=== PATIENT | female | born 1970 | race African-American/Black ===

== ENCOUNTER 2016-10-28 08:34 | Emergency (ER) | payer MEDICAID ==
[~2016-10-28] VITALS: Ht 154.9 cm; Wt 73.0 kg
[~2016-10-28 08:34] MED LIST: ATEN-176; FERR142T6 PO; HYDR-1348; HYDR-3927 PO; NEXIUM
[2016-10-28] MEDS ORDERED: HYDROCODONE/ACETAMINOPHEN 5/325MG TABLET PO ONE (10:15)
[2016-10-28 11:26] VITALS: BP 153/92
== END 2016-10-28 11:34 | disposition home or self-care (01) ==
LOC: ER 08:51
DX: M25.562 Pain in left knee (principal); I10 Essential (primary) hypertension; K21.9 Gastro-esophageal reflux disease without esophagitis; F17.200 Nicotine dependence, unspecified, uncomplicated
CPT/HCPCS: 73560; 99284; L1830

== ENCOUNTER 2019-01-25 02:41 | Emergency (ER) | payer MEDICAID ==
[~2019-01-25] VITALS: Ht 154.9 cm; Wt 69.0 kg
[2019-01-25 04:11] LABS: BASOPHILS % 0.9 % (0.0-2.0); EOSINOPHILS % 0.1 % (0.0-5.0); HEMATOCRIT. 35.5 % (36.0-48.0); HEMOGLOBIN. 11.7 g/dL (12.0-16.0); LYMPHOCYTES % 19.3 % (20.0-50.0); MEAN CORPUSCULAR HEMOGLOBIN 29.7 pg (28.0-32.0); MEAN PLATELET VOLUME 8.3 fl (7.4-10.4); MONOCYTES % 9.9 % (2.0-8.0); NEUTROPHILS % 69.8 % (40.0-76.0); PLATELET 337 x1000/uL (130-400); RED BLOOD CELL COUNT 3.95 mill/uL (4.2-5.4); RED CELL DISTRIBUTION WIDTH 15.1 % (11.6-14.6)
[2019-01-25 04:24] LABS: CHLORIDE 113 mEq/L (98-107)
[2019-01-25 04:27] LABS: ETHANOL BLOOD < 10 mg/dL
[2019-01-25 04:33] LABS: T4 FREE 1.03 ng/dL (0.76-1.46)
[2019-01-25 04:50] LABS: *AMPHETAMINES SCREEN URINE NEGATIVE (NEGATIVE)
[2019-01-25 04:51] LABS: *BARBITURATES SCREEN URINE NEGATIVE (NEGATIVE); *BENZODIAZEPINES SCREEN URINE NEGATIVE (NEGATIVE); *COCAINE SCREEN URINE NEGATIVE (NEGATIVE); PHENCYCLIDINE URINE SCREEN NEGATIVE (NEGATIVE)
[2019-01-25 04:52] LABS: CANNABINOID URINE SCREEN NEGATIVE (NEGATIVE)
[2019-01-25 04:57] LABS: METHADONE URINE SCREEN PRESUMTIVE POSITIVE (NEGATIVE); OPIATES URINE SCREEN PRESUMTIVE POSITIVE (NEGATIVE)
[2019-01-25] MEDS ORDERED: ONDANSETRON 4MG ODT PO ONE (05:00)
[2019-01-25 05:48] VITALS: BP 133/74
== END 2019-01-25 06:18 | disposition home or self-care (01) ==
LOC: ER 02:41
DX: R00.2 Palpitations (principal); D72.829 Elevated white blood cell count, unspecified; F32.9 Major depressive disorder, single episode, unspecified; E11.9 Type 2 diabetes mellitus without complications; F17.200 Nicotine dependence, unspecified, uncomplicated; K21.9 Gastro-esophageal reflux disease without esophagitis; I10 Essential (primary) hypertension; Z90.49 Acquired absence of other specified parts of digestive tract
CPT/HCPCS: 36415; 71045; 80053; 80305; 80320; 81025; 83880; 84439; 84443; 84484; 85025; 93005; 99284; Q0162; G0480

== ENCOUNTER 2019-02-05 18:38 | Emergency (ER) | payer MEDICAID ==
[~2019-02-05] VITALS: Ht 154.9 cm; Wt 68.0 kg
[2019-02-05] MEDS ORDERED: ONDANSETRON HCL 4MG/2ML INJ IV ONE (22:30)
[2019-02-05 22:41] LABS: BASOPHILS % 0.8 % (0.0-2.0); CHLORIDE 109 mEq/L (98-107); EOSINOPHILS % 0.2 % (0.0-5.0); HEMATOCRIT. 36.6 % (36.0-48.0); HEMOGLOBIN. 12.3 g/dL (12.0-16.0); LYMPHOCYTES % 26.8 % (20.0-50.0); MEAN CORPUSCULAR HEMOGLOBIN 30.4 pg (28.0-32.0); MEAN CORPUSCULAR VOLUME 90.6 fL (81.0-99.0); MEAN PLATELET VOLUME 9.3 fl (7.4-10.4); MONOCYTES % 7.4 % (2.0-8.0); NEUTROPHILS % 64.8 % (40.0-76.0); PLATELET 230 x1000/uL (130-400); RED BLOOD CELL COUNT 4.04 mill/uL (4.2-5.4); RED CELL DISTRIBUTION WIDTH 15.4 % (11.6-14.6)
[2019-02-05 23:22] VITALS: BP 124/74
== END 2019-02-06 | disposition home or self-care (01) ==
LOC: ER 18:38
DX: E87.70 Fluid overload, unspecified (principal); K04.7 Periapical abscess without sinus; F12.10 Cannabis abuse, uncomplicated; F32.9 Major depressive disorder, single episode, unspecified; E11.9 Type 2 diabetes mellitus without complications; K21.9 Gastro-esophageal reflux disease without esophagitis; I10 Essential (primary) hypertension; Z90.49 Acquired absence of other specified parts of digestive tract; Z98.890 Other specified postprocedural states; Z79.899 Other long term (current) drug therapy
CPT/HCPCS: 36415; 71045; 80053; 82962; 83880; 84484; 85025; 93005; 96374; 99284; J2405; Z7610

== ENCOUNTER 2019-03-06 15:52 | Emergency (ER) | payer MEDICAID, OTHER ==
[~2019-03-06] VITALS: Ht 154.9 cm; Wt 62.0 kg
[2019-03-06] MEDS ORDERED: ONDANSETRON HCL 4MG/2ML INJ IV STA (23:31)
[2019-03-06] MEDS ORDERED: SODIUM CHLORIDE 0.9% 1,000 ML IV ONE (23:31)
[2019-03-07 00:34] LABS: BASOPHILS % 0.8 % (0.0-2.0); EOSINOPHILS % 0.4 % (0.0-5.0); HEMATOCRIT. 39.4 % (36.0-48.0); HEMOGLOBIN. 13.4 g/dL (12.0-16.0); LYMPHOCYTES % 28.3 % (20.0-50.0); MEAN CORPUSCULAR HEMOGLOBIN 29.8 pg (28.0-32.0); MEAN CORPUSCULAR VOLUME 87.5 fL (81.0-99.0); MEAN PLATELET VOLUME 7.9 fl (7.4-10.4); MONOCYTES % 7.1 % (2.0-8.0); NEUTROPHILS % 63.4 % (40.0-76.0); PLATELET 340 x1000/uL (130-400); RED CELL DISTRIBUTION WIDTH 14.5 % (11.6-14.6)
[2019-03-07 00:39] LABS: CHLORIDE 114 mEq/L (98-107)
[2019-03-07 01:01] VITALS: BP 142/78
[2019-03-07 02:48] LABS: CLARITY URINE CLOUDY (CLEAR); COLOR URINE DARK YELLOW (YELLOW); KETONES URINE TRACE (NEGATIVE); LEUKOCYTE ESTERASE URINE NEGATIVE (NEGATIVE); NITRITE URINE NEGATIVE (NEGATIVE); OCCULT BLOOD URINE NEGATIVE (NEGATIVE); PROTEIN URINE 1+ (NEGATIVE); SPECIFIC GRAVITY URINE 1.026 (1.005-1.030); UROBILINOGEN URINE 0.2 E.U./dL (0.2-1.0)
== END 2019-03-07 03:52 | disposition home or self-care (01) ==
LOC: ER 15:52
DX: R11.2 Nausea with vomiting, unspecified (principal); R19.7 Diarrhea, unspecified; F32.9 Major depressive disorder, single episode, unspecified; K21.9 Gastro-esophageal reflux disease without esophagitis; E11.9 Type 2 diabetes mellitus without complications; F17.200 Nicotine dependence, unspecified, uncomplicated; I10 Essential (primary) hypertension; Z90.49 Acquired absence of other specified parts of digestive tract
CPT/HCPCS: 36415; 71045; 80053; 81003; 83605; 83690; 85025; 87804; 96361; 96374; 99284; J2405; J7030; Z7610

== ENCOUNTER 2020-05-25 15:59 | Emergency (ER) | payer MEDICAID ==
[~2020-05-25] VITALS: Ht 154.9 cm; Wt 77.0 kg
[~2020-05-25 15:59] MED LIST changes: +METF-414 PO
[2020-05-25] MEDS ORDERED: SODIUM CHLORIDE 0.9% 1,000 ML IV ONE (16:30)
[2020-05-25] MEDS ORDERED: ONDANSETRON HCL 4MG/2ML INJ IV ONE (16:30)
[2020-05-25 18:29] LABS: BASOPHILS % 0.3 % (0.0-2.0); CLARITY URINE CLEAR (CLEAR); COLOR URINE YELLOW (YELLOW); HEMATOCRIT. 38.3 % (36.0-48.0); KETONES URINE TRACE (NEGATIVE); LEUKOCYTE ESTERASE URINE NEGATIVE (NEGATIVE); LYMPHOCYTES % 18.7 % (20.0-50.0); MEAN CORPUSCULAR HEMOGLOBIN 31.2 pg (28.0-32.0); MEAN PLATELET VOLUME 9.7 fl (7.4-10.4); MONOCYTES % 5.9 % (2.0-8.0); NEUTROPHILS % 75.1 % (40.0-76.0); NITRITE URINE NEGATIVE (NEGATIVE); OCCULT BLOOD URINE NEGATIVE (NEGATIVE); PH URINE 5.5 (4.5-8.0); PLATELET 311 x1000/uL (130-400); PROTEIN URINE 1+ (NEGATIVE); RED BLOOD CELL COUNT 4.16 mill/uL (4.2-5.4); RED CELL DISTRIBUTION WIDTH 13.1 % (11.6-14.6); SPECIFIC GRAVITY URINE 1.031 (1.005-1.030); UROBILINOGEN URINE 0.2 E.U./dL (0.2-1.0)
[2020-05-25 18:35] LABS: CHLORIDE 106 mEq/L (98-107)
[2020-05-25] MEDS ORDERED: MORPHINE SULFATE 4 MG/ML CPJ (NOT FOR IM USE) IV ONE (19:15)
[2020-05-25] MEDS ORDERED: ONDA4TAB5 PO (21:22)
[2020-05-25 21:50] VITALS: BP 119/73
[2020-05-29] MEDS ORDERED: METF-874 PO (18:21)
== END 2020-05-25 21:50 | disposition home or self-care (01) ==
LOC: ER 15:59
DX: N17.9 Acute kidney failure, unspecified (principal); E86.0 Dehydration; D72.829 Elevated white blood cell count, unspecified; D35.00 Benign neoplasm of unspecified adrenal gland; E11.9 Type 2 diabetes mellitus without complications; K21.9 Gastro-esophageal reflux disease without esophagitis; I10 Essential (primary) hypertension; Z98.890 Other specified postprocedural states; Z90.49 Acquired absence of other specified parts of digestive tract; Z79.899 Other long term (current) drug therapy
CPT/HCPCS: 36415; 71045; 74176; 80048; 80076; 81003; 81025; 82962; 84484; 85025; 93005; 96361; 96374; 96375; 99285; J2270; J2405; J7030

== ENCOUNTER 2020-06-18 17:39 | Emergency (ER) | payer MEDICAID ==
[~2020-06-18] VITALS: Ht 167.6 cm; Wt 80.0 kg
[~2020-06-18 17:39] MED LIST changes: -FERR142T6 PO; -HYDR-1348; -METF-414 PO; +METF-874 PO; -NEXIUM
[2020-06-18] MEDS ORDERED: MORPHINE SULFATE 4 MG/ML CPJ (NOT FOR IM USE) IV ONE (19:00)
[2020-06-18 19:39] LABS: BASOPHILS % 0.8 % (0.0-2.0); EOSINOPHILS % 0.5 % (0.0-5.0); HEMATOCRIT. 32.9 % (36.0-48.0); HEMOGLOBIN. 11.3 g/dL (12.0-16.0); LYMPHOCYTES % 20.5 % (20.0-50.0); MEAN CORPUSCULAR HEMOGLOBIN 31.5 pg (28.0-32.0); MEAN CORPUSCULAR VOLUME 91.9 fL (81.0-99.0); MEAN PLATELET VOLUME 9.2 fl (7.4-10.4); MONOCYTES % 6.9 % (2.0-8.0); NEUTROPHILS % 71.3 % (40.0-76.0); PLATELET 354 x1000/uL (130-400); RED BLOOD CELL COUNT 3.58 mill/uL (4.2-5.4); RED CELL DISTRIBUTION WIDTH 14.9 % (11.6-14.6)
[2020-06-18 19:49] LABS: PROTHROMBIN TIME 10.4 sec (9.6-11.0)
[2020-06-18 20:44] LABS: CHLORIDE 112 mEq/L (98-107)
[2020-06-18 20:59] LABS: CLARITY URINE CLEAR (CLEAR); COLOR URINE YELLOW (YELLOW); KETONES URINE NEGATIVE (NEGATIVE); LEUKOCYTE ESTERASE URINE NEGATIVE (NEGATIVE); NITRITE URINE NEGATIVE (NEGATIVE); OCCULT BLOOD URINE NEGATIVE (NEGATIVE); PH URINE 5.5 (4.5-8.0); PROTEIN URINE NEGATIVE (NEGATIVE); SPECIFIC GRAVITY URINE 1.017 (1.005-1.030); UROBILINOGEN URINE 0.2 E.U./dL (0.2-1.0)
[2020-06-18] MEDS ORDERED: ONDANSETRON HCL 4MG/2ML INJ IV ONE (21:15)
[2020-06-18 23:47] VITALS: BP 119/76
== END 2020-06-19 00:40 | disposition home or self-care (01) ==
LOC: ER 17:39
DX: R10.9 Unspecified abdominal pain (principal); E11.9 Type 2 diabetes mellitus without complications; K21.9 Gastro-esophageal reflux disease without esophagitis; I10 Essential (primary) hypertension; Z90.49 Acquired absence of other specified parts of digestive tract
CPT/HCPCS: 36415; 74176; 80053; 81003; 83690; 83880; 85025; 85610; 93005; 96374; 96375; 99285; J2270; J2405

== ENCOUNTER 2020-07-25 07:04 | Inpatient (IN) | payer MEDICAID, OTHER ==
[~2020-07-25] VITALS: Ht 154.9 cm; Wt 80.3 kg
[~2020-07-25 07:04] MED LIST changes: +AMLO5TAB88 PO; -ATEN-176; +GLIP5TAB12 PO; -HYDR-3927 PO; +METF-414 MT; -METF-874 PO; +PANT40TA51 MT
[2020-07-25] MEDS ORDERED: ONDANSETRON HCL 4MG/2ML INJ IV STA (07:55)
[2020-07-25] MEDS ORDERED: FAMOTIDINE 20MG/2ML VIAL IV STA (07:55)
[2020-07-25] MEDS ORDERED: MORPHINE SULFATE 4 MG/ML CPJ (NOT FOR IM USE) IV STA (07:55)
[2020-07-25] MEDS ORDERED: SODIUM CHLORIDE 0.9% 1,000 ML IV ONE (08:00)
[2020-07-25 08:17] LABS: BASOPHILS % 0.8 % (0.0-2.0); HEMATOCRIT. 43.5 % (36.0-48.0); HEMOGLOBIN. 14.6 g/dL (12.0-16.0); LYMPHOCYTES % 18.9 % (20.0-50.0); MEAN CORPUSCULAR HEMOGLOBIN 31.4 pg (28.0-32.0); MEAN CORPUSCULAR VOLUME 93.7 fL (81.0-99.0); MEAN PLATELET VOLUME 8.9 fl (7.4-10.4); NEUTROPHILS % 73.3 % (40.0-76.0); PLATELET 368 x1000/uL (130-400); RED BLOOD CELL COUNT 4.64 mill/uL (4.2-5.4); RED CELL DISTRIBUTION WIDTH 15.2 % (11.6-14.6)
[2020-07-25 08:24] LABS: CHLORIDE 111 mEq/L (98-107)
[2020-07-25 08:27] LABS: PROTHROMBIN TIME 10.5 sec (9.6-11.0)
[2020-07-25 08:30] LABS: ETHANOL BLOOD < 10 mg/dL
[2020-07-25 08:41] LABS: HCG SCREEN NEGATIVE
[2020-07-25] MEDS ORDERED: PIPERACILLIN/TAZ 3.375G PREMIX 50 ML IV ONE (09:00)
[2020-07-25] MEDS ORDERED: SODIUM CHLORIDE 0.9% 1000ML BAG (SEPSIS BOLUS) IV ONE (09:00)
[2020-07-25 09:45] LABS: *AMPHETAMINES SCREEN URINE NEGATIVE (NEGATIVE); *BARBITURATES SCREEN URINE NEGATIVE (NEGATIVE); *BENZODIAZEPINES SCREEN URINE NEGATIVE (NEGATIVE); CANNABINOID URINE SCREEN NEGATIVE (NEGATIVE)
[2020-07-25 09:46] LABS: *COCAINE SCREEN URINE NEGATIVE (NEGATIVE); METHADONE URINE SCREEN NEGATIVE (NEGATIVE); OPIATES URINE SCREEN PRESUMTIVE POSITIVE (NEGATIVE); PHENCYCLIDINE URINE SCREEN NEGATIVE (NEGATIVE)
[2020-07-25 09:50] LABS: CLARITY URINE CLEAR (CLEAR); COLOR URINE DARK YELLOW (YELLOW); KETONES URINE NEGATIVE (NEGATIVE); LEUKOCYTE ESTERASE URINE NEGATIVE (NEGATIVE); NITRITE URINE NEGATIVE (NEGATIVE); OCCULT BLOOD URINE TRACE (NEGATIVE); PH URINE 5.5 (4.5-8.0); PROTEIN URINE 2+ (NEGATIVE); SPECIFIC GRAVITY URINE 1.029 (1.005-1.030); UROBILINOGEN URINE 0.2 E.U./dL (0.2-1.0)
[2020-07-25] MEDS: MORPHINE SULFATE 2 MG/ML CPJ (NOT FOR IM USE) IV PRN ×2 (14:35→20:06)
[2020-07-25 23:52] VITALS: BP 157/79
[2020-07-26] VITALS: BP 157/79
[2020-07-26] MEDS ORDERED: DEXTROSE 50% WATER 50ML SYRINGE IV PRN (00:30)
[2020-07-26] MEDS ORDERED: CLONIDINE 0.1MG TABLET PO PRN (00:30)
[2020-07-26] MEDS ORDERED: ONDANSETRON HCL 4MG/2ML INJ IV PRN (00:30)
[2020-07-26] MEDS ORDERED: SODIUM CHLORIDE 0.9% 1,000 ML IV SCH (00:30)
[2020-07-26] MEDS ORDERED: BLOOD SUGAR DIAGNOSTIC STRIP TEST SCH (07:20)
[2020-07-26] MEDS ORDERED: INSULIN LISPRO 100 UNITS/ML SUBCUT SCH (07:50)
[2020-07-26] MEDS ORDERED: PANTOPRAZOLE SODIUM 40 MG/VIAL IV SCH (09:00)
== END 2020-07-26 01:15 | disposition left against medical advice (07) | DRG 251 ==
LOC: ER 07:04 → EDBEDREQ 10:08 → EDBEDREQTM 10:08 → EDBEDREQSVC 10:08 → ENRESERV 21:25 → 6EST 23:25
PROVIDERS: ADMIT Internal Medicine; ATTEND Internal Medicine
DX: R10.9 Unspecified abdominal pain (principal); E11.9 Type 2 diabetes mellitus without complications; R11.2 Nausea with vomiting, unspecified; I10 Essential (primary) hypertension; K21.9 Gastro-esophageal reflux disease without esophagitis; F17.210 Nicotine dependence, cigarettes, uncomplicated; Z79.899 Other long term (current) drug therapy; Z90.49 Acquired absence of other specified parts of digestive tract; Z82.49 Family history of ischemic heart disease and other diseases of the circulatory system
CPT/HCPCS: 36415; 71045; 74176; 80053; 80305; 80320; 81003; 82962; 83605; 84703; 85025; 93005; 99291; J2270; J2405; J2543; J3490; J7030; G0480

== ENCOUNTER 2020-09-07 21:14 | Emergency (ER) | payer MEDICAID ==
[~2020-09-07] VITALS: Ht 154.9 cm; Wt 77.0 kg
[2020-09-07] MEDS ORDERED: KETOROLAC 30MG/ML VIAL IV STA (22:10)
[2020-09-07] MEDS ORDERED: METOCLOPRAMIDE HCL 10MG/2ML VIAL IV STA (22:10)
[2020-09-07 22:25] LABS: BASOPHILS % 0.7 % (0.0-2.0); EOSINOPHILS % 0.2 % (0.0-5.0); HEMATOCRIT. 34.6 % (36.0-48.0); LYMPHOCYTES % 16.6 % (20.0-50.0); MEAN CORPUSCULAR HEMOGLOBIN 31.2 pg (28.0-32.0); MEAN CORPUSCULAR VOLUME 90.3 fL (81.0-99.0); MEAN PLATELET VOLUME 8.4 fl (7.4-10.4); MONOCYTES % 4.7 % (2.0-8.0); NEUTROPHILS % 77.8 % (40.0-76.0); PLATELET 327 x1000/uL (130-400); RED BLOOD CELL COUNT 3.83 mill/uL (4.2-5.4); RED CELL DISTRIBUTION WIDTH 13.2 % (11.6-14.6)
[2020-09-07 22:31] LABS: CHLORIDE 109 mEq/L (98-107)
[2020-09-08] MEDS ORDERED: KETOROLAC 30MG/ML VIAL IV ONE (03:15)
[2020-09-08] MEDS ORDERED: METO-293 MT (03:23)
[2020-09-08 03:55] VITALS: BP 119/65
== END 2020-09-08 03:58 | disposition home or self-care (01) ==
LOC: ER 21:14
DX: R10.13 Epigastric pain (principal); E11.43 Type 2 diabetes mellitus with diabetic autonomic (poly)neuropathy; K31.84 Gastroparesis; K21.9 Gastro-esophageal reflux disease without esophagitis; I10 Essential (primary) hypertension; F17.290 Nicotine dependence, other tobacco product, uncomplicated; Z98.890 Other specified postprocedural states; Z90.49 Acquired absence of other specified parts of digestive tract; Z79.899 Other long term (current) drug therapy
CPT/HCPCS: 36415; 80053; 83605; 83690; 85025; 93005; 96374; 96375; 96376; 99285; J1885; J2765

== ENCOUNTER 2020-10-09 08:09 | Emergency (ER) | payer MEDICAID ==
[~2020-10-09] VITALS: Ht 160 cm; Wt 80.0 kg
[~2020-10-09 08:09] MED LIST changes: +METO-293 MT
[2020-10-09] MEDS ORDERED: KETOROLAC 60MG/2ML VIAL IM ONE (09:15)
[2020-10-09] MEDS ORDERED: IBUP-2029 MT (10:03)
[2020-10-09 10:15] VITALS: BP 147/80
== END 2020-10-09 10:17 | disposition home or self-care (01) ==
LOC: ER 08:09
DX: S86.812A Strain of other muscle(s) and tendon(s) at lower leg level, left leg, initial encounter (principal); M79.662 Pain in left lower leg; E11.9 Type 2 diabetes mellitus without complications; I10 Essential (primary) hypertension; W10.8XXA Fall (on) (from) other stairs and steps, initial encounter; Y93.01 Activity, walking, marching and hiking; Y92.9 Unspecified place or not applicable
CPT/HCPCS: 73502; 96372; 99283; J1885

== ENCOUNTER 2020-10-18 14:37 | Emergency (ER) | payer MEDICAID ==
[~2020-10-18] VITALS: Ht 154.9 cm; Wt 77.0 kg
[~2020-10-18 14:37] MED LIST changes: +IBUP-2029 MT
[2020-10-18] MEDS ORDERED: TRAMADOL 50MG TABLET PO ONE (17:30)
[2020-10-18] MEDS ORDERED: IBUPROFEN 600MG TABLET PO ONE (17:30)
[2020-10-18] MEDS ORDERED: TRAM-529 MT (17:42)
[2020-10-18 17:53] VITALS: BP 162/86
== END 2020-10-18 18:06 | disposition home or self-care (01) ==
LOC: ER 14:37
DX: S39.011A Strain of muscle, fascia and tendon of abdomen, initial encounter (principal); E11.9 Type 2 diabetes mellitus without complications; I10 Essential (primary) hypertension; W01.0XXA Fall on same level from slipping, tripping and stumbling without subsequent striking against object, initial encounter; Y93.9 Activity, unspecified; Y92.9 Unspecified place or not applicable; Z98.890 Other specified postprocedural states
CPT/HCPCS: 99283

== ENCOUNTER 2020-10-25 21:45 | Emergency (ER) | payer MEDICAID ==
[~2020-10-25] VITALS: Ht 154.9 cm; Wt 78.0 kg
[~2020-10-25 21:45] MED LIST changes: +TRAM-529 MT
[2020-10-26 01:27] LABS: BASOPHILS % 0.8 % (0.0-2.0); EOSINOPHILS % 0.1 % (0.0-5.0); HEMATOCRIT. 37.8 % (36.0-48.0); HEMOGLOBIN. 12.9 g/dL (12.0-16.0); LYMPHOCYTES % 16.9 % (20.0-50.0); MEAN CORPUSCULAR HEMOGLOBIN 30.5 pg (28.0-32.0); MEAN CORPUSCULAR VOLUME 89.3 fL (81.0-99.0); MEAN PLATELET VOLUME 9.3 fl (7.4-10.4); MONOCYTES % 6.5 % (2.0-8.0); NEUTROPHILS % 75.7 % (40.0-76.0); PLATELET 265 x1000/uL (130-400); RED BLOOD CELL COUNT 4.23 mill/uL (4.2-5.4); RED CELL DISTRIBUTION WIDTH 13.4 % (11.6-14.6)
[2020-10-26 01:29] LABS: CLARITY URINE CLEAR (CLEAR); COLOR URINE YELLOW (YELLOW); KETONES URINE NEGATIVE (NEGATIVE); LEUKOCYTE ESTERASE URINE NEGATIVE (NEGATIVE); NITRITE URINE NEGATIVE (NEGATIVE); OCCULT BLOOD URINE NEGATIVE (NEGATIVE); PROTEIN URINE NEGATIVE (NEGATIVE); SPECIFIC GRAVITY URINE 1.035 (1.005-1.030); UROBILINOGEN URINE 0.2 E.U./dL (0.2-1.0)
[2020-10-26 01:29] LABS: BG BASE EXCESS -2.1 mmol/L (-2.0-2.0); BG CARBOXYHEMOGLOBIN 5.1 % (0.5-1.5); BG DEOXYHEMOGLOBIN 2.9 % (0.0-5.0); BG HCO3 ACT 20.7 mmol/L (22.0-26.0); BG METHEMOGLOBIN 0.1 % (0.0-1.5); BG OXYGEN SATURATION 96.9 % (92.0-98.5); BG OXYHEMOGLOBIN 91.9 % (94.0-97.0); BG PCO2 29.8 mmHg (35.0-45.0); BG PH 7.459 (7.350-7.450); BG PO2 84.2 mmHg (75.0-100.0); BG SAMPLE SITE RIGHT RADIAL; BG TOTAL HEMOGLOBIN 13.3 g/dL (12.0-18.0); BG VENT MODE ROOM AIR
[2020-10-26 01:31] LABS: CHLORIDE 99 mEq/L (98-107)
[2020-10-26 01:39] LABS: BETA HYDROXYBUTYRATE 0.1 mMol/L (0.0-0.3)
[2020-10-26] MEDS ORDERED: KETOROLAC 30MG/ML VIAL IV STA (01:59)
[2020-10-26] MEDS ORDERED: INSULIN REGULAR (HUMULIN R) 300UNITS/3ML VIAL SUBCUT ONE (02:00)
[2020-10-26] MEDS ORDERED: SODIUM CHLORIDE 0.9% 1,000 ML IV ONE ×2 (02:00)
[2020-10-26 04:24] VITALS: BP 145/95
== END 2020-10-26 03:18 | disposition short-term general hospital (02) ==
LOC: ER 21:45
DX: E11.65 Type 2 diabetes mellitus with hyperglycemia (principal); M79.18 Myalgia, other site; I10 Essential (primary) hypertension; K21.9 Gastro-esophageal reflux disease without esophagitis; Z98.890 Other specified postprocedural states
CPT/HCPCS: 71045; 93005; 96361; 96372; 96374; 99285

== ENCOUNTER 2021-01-24 03:11 | Emergency (ER) | payer MEDICAID, OTHER ==
[~2021-01-24] VITALS: Ht 154.9 cm; Wt 75.0 kg
[2021-01-24] MEDS ORDERED: ONDANSETRON HCL 4MG/2ML INJ IV STA (07:31)
[2021-01-24] MEDS ORDERED: VISCOUS LIDOCAINE 2% 15 ML UDC PO STA (07:31)
[2021-01-24] MEDS ORDERED: MAGNESIUM/ALUMINUM HYDROXIDE/SIMETHICONE 30ML UDC PO STA (07:31)
[2021-01-24] MEDS ORDERED: SODIUM CHLORIDE 0.9% 1,000 ML IV ONE (07:45)
[2021-01-24 08:50] VITALS: BP 140/84
== END 2021-01-24 10:29 | disposition left against medical advice (07) ==
LOC: ER 03:11
DX: R10.9 Unspecified abdominal pain (principal); E11.9 Type 2 diabetes mellitus without complications; K21.9 Gastro-esophageal reflux disease without esophagitis; E78.00 Pure hypercholesterolemia, unspecified; I10 Essential (primary) hypertension; Z90.49 Acquired absence of other specified parts of digestive tract; Z98.890 Other specified postprocedural states
CPT/HCPCS: 82962; 93005; 96361; 96374; 99283; J2405; J7030

== ENCOUNTER 2021-01-29 14:00 | Emergency (ER) | payer OTHER ==
[~2021-01-29] VITALS: Ht 154.9 cm; Wt 73.0 kg
[2021-01-29] MEDS ORDERED: SODIUM CHLORIDE 0.9% 1,000 ML IV ONE (14:15)
[2021-01-29] MEDS ORDERED: ONDANSETRON HCL 4MG/2ML INJ IV ONE (14:30)
[2021-01-29] MEDS ORDERED: ACETAMINOPHEN 325MG TABLET PO ONE (14:30)
[2021-01-29 14:33] LABS: BASOPHILS % 0.9 % (0.0-2.0); EOSINOPHILS % 0.2 % (0.0-5.0); HEMATOCRIT. 45.7 % (36.0-48.0); HEMOGLOBIN. 15.1 g/dL (12.0-16.0); LYMPHOCYTES % 19.5 % (20.0-50.0); MEAN CORPUSCULAR HEMOGLOBIN 29.8 pg (28.0-32.0); MEAN CORPUSCULAR VOLUME 90.3 fL (81.0-99.0); MEAN PLATELET VOLUME 9.6 fl (7.4-10.4); MONOCYTES % 6.7 % (2.0-8.0); NEUTROPHILS % 72.7 % (40.0-76.0); PLATELET 347 x1000/uL (130-400); RED BLOOD CELL COUNT 5.06 mill/uL (4.2-5.4); RED CELL DISTRIBUTION WIDTH 13.3 % (11.6-14.6)
[2021-01-29 15:39] LABS: CHLORIDE 104 mEq/L (98-107)
[2021-01-29] MEDS ORDERED: KETOROLAC 15MG/ML VIAL IV ONE (16:15)
[2021-01-29 16:27] LABS: BG BASE EXCESS -5.5 mmol/L (-2.0-2.0); BG CARBOXYHEMOGLOBIN 2.4 % (0.5-1.5); BG DEOXYHEMOGLOBIN 3.1 % (0.0-5.0); BG HCO3 ACT 16.9 mmol/L (22.0-26.0); BG METHEMOGLOBIN 0.2 % (0.0-1.5); BG OXYGEN SATURATION 96.8 % (92.0-98.5); BG OXYHEMOGLOBIN 94.3 % (94.0-97.0); BG PCO2 25.8 mmHg (35.0-45.0); BG PH 7.434 (7.350-7.450); BG PO2 87.2 mmHg (75.0-100.0); BG SAMPLE SITE RIGHT RADIAL; BG VENT MODE ROOM AIR
[2021-01-29 17:14] LABS: CLARITY URINE CLEAR (CLEAR); COLOR URINE YELLOW (YELLOW); KETONES URINE NEGATIVE (NEGATIVE); LEUKOCYTE ESTERASE URINE NEGATIVE (NEGATIVE); NITRITE URINE NEGATIVE (NEGATIVE); OCCULT BLOOD URINE NEGATIVE (NEGATIVE); PH URINE 5.5 (4.5-8.0); PROTEIN URINE 1+ (NEGATIVE); SPECIFIC GRAVITY URINE 1.038 (1.005-1.030); UROBILINOGEN URINE 0.2 E.U./dL (0.2-1.0)
[2021-01-29] MEDS ORDERED: METRONIDAZOLE 500 MG PREMIX 100 ML IV ONE (18:15)
[2021-01-29] MEDS ORDERED: CEFTRIAXONE 1 G PREMIX 50 ML IV ONE (18:15)
[2021-01-29 18:58] VITALS: BP 137/87
== END 2021-01-29 19:35 | disposition short-term general hospital (02) ==
LOC: ER 14:00
DX: R10.9 Unspecified abdominal pain (principal); F11.23 Opioid dependence with withdrawal; R00.0 Tachycardia, unspecified; I10 Essential (primary) hypertension; E11.9 Type 2 diabetes mellitus without complications; K21.9 Gastro-esophageal reflux disease without esophagitis; E78.00 Pure hypercholesterolemia, unspecified; Z90.49 Acquired absence of other specified parts of digestive tract
CPT/HCPCS: 36415; 36600; 74176; 80053; 81003; 82375; 82805; 83605; 83690; 84484; 85025; 93005; 96365; 96368; 96375; 99285; J0696; J1885; J2405; J3490; J7030; J7040

== ENCOUNTER 2021-03-03 10:45 | Emergency (ER) | payer MEDICAID, OTHER ==
[~2021-03-03] VITALS: Ht 154.9 cm; Wt 73.0 kg
[2021-03-03 11:43] VITALS: BP 140/87
[2021-03-03 14:29] LABS: CLARITY URINE CLEAR (CLEAR); COLOR URINE YELLOW (YELLOW); KETONES URINE NEGATIVE (NEGATIVE); LEUKOCYTE ESTERASE URINE NEGATIVE (NEGATIVE); NITRITE URINE NEGATIVE (NEGATIVE); OCCULT BLOOD URINE NEGATIVE (NEGATIVE); PH URINE 5.5 (4.5-8.0); PROTEIN URINE 2+ (NEGATIVE); SPECIFIC GRAVITY URINE 1.038 (1.005-1.030)
== END 2021-03-03 12:19 | disposition left against medical advice (07) ==
LOC: ER 10:45
DX: J02.9 Acute pharyngitis, unspecified (principal); M79.10 Myalgia, unspecified site
CPT/HCPCS: 81003; 87070; 87430; 99283

== ENCOUNTER 2021-03-13 09:54 | Emergency (ER) | payer OTHER ==
[~2021-03-13] VITALS: Ht 154.9 cm; Wt 70.7 kg
[2021-03-13] MEDS ORDERED: HYDROCODONE/ACETAMINOPHEN 5/325MG TABLET PO ONE (11:15)
[2021-03-13] MEDS ORDERED: IBUPROFEN 400MG TABLET PO ONE (11:15)
[2021-03-13 12:20] VITALS: BP 155/88
== END 2021-03-13 12:47 | disposition left against medical advice (07) ==
LOC: ER 10:24
DX: R60.0 Localized edema (principal); R00.0 Tachycardia, unspecified; I10 Essential (primary) hypertension; E11.9 Type 2 diabetes mellitus without complications; Z90.49 Acquired absence of other specified parts of digestive tract; Z98.890 Other specified postprocedural states
CPT/HCPCS: 82962; 93005; 93970; 99284

== ENCOUNTER 2021-03-18 06:52 | Emergency (ER) | payer OTHER ==
[~2021-03-18] VITALS: Ht 154.9 cm; Wt 73.0 kg
[2021-03-18 12:09] LABS: BASOPHILS % 0.3 % (0.0-2.0); EOSINOPHILS % 0.1 % (0.0-5.0); HEMATOCRIT. 38.6 % (36.0-48.0); HEMOGLOBIN. 12.7 g/dL (12.0-16.0); LYMPHOCYTES % 7.7 % (20.0-50.0); MEAN CORPUSCULAR HEMOGLOBIN 28.5 pg (28.0-32.0); MEAN CORPUSCULAR VOLUME 86.7 fL (81.0-99.0); MEAN PLATELET VOLUME 8.4 fl (7.4-10.4); MONOCYTES % 7.6 % (2.0-8.0); NEUTROPHILS % 84.3 % (40.0-76.0); PLATELET 599 x1000/uL (130-400); RED BLOOD CELL COUNT 4.46 mill/uL (4.2-5.4); RED CELL DISTRIBUTION WIDTH 13.3 % (11.6-14.6)
[2021-03-18 12:13] LABS: CHLORIDE 105 mEq/L (98-107)
[2021-03-18] MEDS ORDERED: SODIUM CHLORIDE 0.9% 1000ML BAG (SEPSIS BOLUS) IV ONE (14:00)
[2021-03-18] MEDS ORDERED: CEFTRIAXONE 1 G PREMIX 50 ML IV ONE (14:15)
[2021-03-18] MEDS ORDERED: AZITHROMYCIN 500 MG in DEXT 5% WATER 250 ML IV STA (15:06)
[2021-03-18] MEDS ORDERED: AZITHROMYCIN 500MG/250ML 250 ML IV NR (15:15)
[2021-03-18 17:19] VITALS: BP 153/78
== END 2021-03-18 18:14 | disposition short-term general hospital (02) ==
LOC: ER 06:52 → EDBEDREQTM 14:15 → ER 18:14 → CANBEDREQ 18:21
DX: J18.9 Pneumonia, unspecified organism (principal); E11.9 Type 2 diabetes mellitus without complications; K21.9 Gastro-esophageal reflux disease without esophagitis; E78.00 Pure hypercholesterolemia, unspecified; I10 Essential (primary) hypertension; Z90.49 Acquired absence of other specified parts of digestive tract; Z20.822 Contact with and (suspected) exposure to COVID-19; Z98.890 Other specified postprocedural states
CPT/HCPCS: 36415; 71045; 80053; 82962; 83605; 83880; 84484; 85025; 87040; 87426; 93005; 96361; 96365; 96367; 99285; J0456; J0696; J7030; J7060

== ENCOUNTER 2021-09-20 12:03 | Emergency (ER) | payer MEDICAID, OTHER ==
[~2021-09-20] VITALS: Ht 154.9 cm; Wt 69.0 kg
[2021-09-20] MEDS ORDERED: ONDANSETRON HCL 4MG/2ML INJ IV STA (18:24)
[2021-09-20] MEDS ORDERED: MORPHINE SULFATE 4 MG/ML CPJ (NOT FOR IM USE) IV STA (18:24)
[2021-09-20 18:40] LABS: HEMATOCRIT. 39.2 % (36.0-48.0); HEMOGLOBIN. 13.1 g/dL (12.0-16.0); MEAN CORPUSCULAR HEMOGLOBIN 29.9 pg (28.0-32.0); MEAN CORPUSCULAR VOLUME 89.5 fL (81.0-99.0); MEAN PLATELET VOLUME 8.8 fl (7.4-10.4); PLATELET 327 x1000/uL (130-400); RED BLOOD CELL COUNT 4.38 mill/uL (4.2-5.4); RED CELL DISTRIBUTION WIDTH 14.2 % (11.6-14.6)
[2021-09-20 18:47] LABS: CHLORIDE 108 mEq/L (98-107)
[2021-09-20] MEDS ORDERED: MORPHINE SULFATE 4 MG/ML CPJ (NOT FOR IM USE) IV ONE (19:45)
[2021-09-20] MEDS ORDERED: HYDR-4001 MT (20:14)
[2021-09-20 20:40] VITALS: BP 134/84
[2021-09-20 21:54] LABS: PLATELET ESTIMATE NORMAL
== END 2021-09-20 20:41 | disposition home or self-care (01) ==
LOC: ER 12:03
DX: U07.1 COVID-19 (principal); M54.50 Low back pain, unspecified; E11.65 Type 2 diabetes mellitus with hyperglycemia; K21.9 Gastro-esophageal reflux disease without esophagitis; E78.00 Pure hypercholesterolemia, unspecified; I10 Essential (primary) hypertension; Z90.49 Acquired absence of other specified parts of digestive tract; Z87.19 Personal history of other diseases of the digestive system; Z79.899 Other long term (current) drug therapy
CPT/HCPCS: 36415; 71045; 80053; 83690; 83880; 84484; 85025; 87426; 96374; 96375; 99284; C9803; J2270; J2405

== ENCOUNTER 2021-11-28 20:06 | Emergency (ER) | payer MEDICAID, OTHER ==
[~2021-11-28] VITALS: Ht 154.9 cm; Wt 84.0 kg
[2021-11-28 20:17] VITALS: BP 153/79
== END 2021-11-29 04:17 | disposition home or self-care (01) ==
LOC: ER 20:06
DX: R60.9 Edema, unspecified (principal); I10 Essential (primary) hypertension; Z68.35 Body mass index [BMI] 35.0-35.9, adult; E11.9 Type 2 diabetes mellitus without complications; Z98.890 Other specified postprocedural states; F17.290 Nicotine dependence, other tobacco product, uncomplicated
CPT/HCPCS: 71045; 93970; 99284; 99406

== ENCOUNTER 2022-01-14 17:56 | Emergency (ER) | payer MEDICAID ==
[~2022-01-14] VITALS: Ht 167.6 cm; Wt 75.0 kg
[2022-01-14 18:04] VITALS: BP 143/83
[2022-01-14] MEDS ORDERED: CYCLOBENZAPRINE 10MG TABLET PO ONE (23:00)
[2022-01-14] MEDS ORDERED: HYDROCODONE/ACETAMINOPHEN 5/325MG TABLET PO ONE (23:00)
[2022-01-15] MEDS ORDERED: CYCL5TAB MT (01:43)
[2022-01-15] MEDS ORDERED: HYDR-4001 MT (01:43)
== END 2022-01-15 02:10 | disposition home or self-care (01) ==
LOC: ER 17:56
DX: M54.50 Low back pain, unspecified (principal); I10 Essential (primary) hypertension; E11.9 Type 2 diabetes mellitus without complications; Z79.899 Other long term (current) drug therapy; W01.0XXA Fall on same level from slipping, tripping and stumbling without subsequent striking against object, initial encounter; Y93.89 Activity, other specified; Y92.89 Other specified places as the place of occurrence of the external cause; Y99.8 Other external cause status; Z98.890 Other specified postprocedural states
CPT/HCPCS: 72131; 82962; 99284

== ENCOUNTER 2022-02-03 03:59 | Emergency (ER) | payer MEDICAID ==
[~2022-02-03] VITALS: Ht 154.9 cm; Wt 72.7 kg
[~2022-02-03 03:59] MED LIST changes: +CYCL5TAB MT; -IBUP-2029 MT; +LEVO-65 MT; -METO-293 MT; -TRAM-529 MT
[2022-02-03 04:02] VITALS: BP 137/92
== END 2022-02-03 05:31 | disposition left against medical advice (07) ==
LOC: ER 04:09
DX: Z53.21 Procedure and treatment not carried out due to patient leaving prior to being seen by health care provider (principal); E11.9 Type 2 diabetes mellitus without complications; K21.9 Gastro-esophageal reflux disease without esophagitis; I10 Essential (primary) hypertension; Z87.01 Personal history of pneumonia (recurrent); Z98.890 Other specified postprocedural states
CPT/HCPCS: 93005

== ENCOUNTER 2022-02-06 16:59 | Emergency (ER) | payer MEDICAID ==
[~2022-02-06] VITALS: Ht 167.6 cm; Wt 78.0 kg
[2022-02-06 17:08] VITALS: BP 144/71
[2022-02-07] MEDS ORDERED: FURO20TA4 PO (04:57)
[2022-02-07] MEDS ORDERED: POTA-79 MT (04:57)
[2022-02-07] MEDS ORDERED: FUROSEMIDE 40MG TABLET PO ONE (05:00)
[2022-02-07] MEDS ORDERED: HYDROCODONE/ACETAMINOPHEN 5/325MG TABLET PO ONE (05:00)
[2022-02-07] MEDS ORDERED: ACET-2708 MT (06:17)
[2022-02-07] MEDS ORDERED: CEPH500C2 MT (06:22)
== END 2022-02-07 06:27 | disposition home or self-care (01) ==
LOC: ER 16:59
DX: R60.0 Localized edema (principal); I10 Essential (primary) hypertension; E11.9 Type 2 diabetes mellitus without complications; Z79.899 Other long term (current) drug therapy; Z98.890 Other specified postprocedural states
CPT/HCPCS: 93005; 99283

== ENCOUNTER 2022-03-06 23:34 | Emergency (ER) | payer MEDICAID ==
[~2022-03-06] VITALS: Ht 154.9 cm; Wt 70.0 kg
[~2022-03-06 23:34] MED LIST changes: +ACET-2708 MT; +CEPH500C2 MT; +FURO20TA4 PO; +POTA-79 MT
[2022-03-07] MEDS ORDERED: SODIUM CHLORIDE 0.9% 1,000 ML IV ONE (00:15)
[2022-03-07 01:36] LABS: BASOPHILS % 1.2 % (0.0-2.0); EOSINOPHILS % 0.5 % (0.0-5.0); HEMATOCRIT. 35.6 % (36.0-48.0); MEAN CORPUSCULAR HEMOGLOBIN 29.3 pg (28.0-32.0); MEAN CORPUSCULAR VOLUME 86.8 fL (81.0-99.0); MEAN PLATELET VOLUME 8.5 fl (7.4-10.4); MONOCYTES % 5.2 % (2.0-8.0); NEUTROPHILS % 78.1 % (40.0-76.0); PLATELET 300 x1000/uL (130-400); RED CELL DISTRIBUTION WIDTH 14.4 % (11.6-14.6)
[2022-03-07 01:44] LABS: CHLORIDE 106 mEq/L (98-107)
[2022-03-07 01:53] LABS: BETA HYDROXYBUTYRATE 0.1 mMol/L (0.0-0.3); ETHANOL BLOOD < 10 mg/dL
[2022-03-07] MEDS ORDERED: VANCOMYCIN 1G PREMIX 200 ML IV SCH (04:15)
[2022-03-07] MEDS ORDERED: PIPERACILLIN/TAZOBACTAM 3.375GM/50ML PREMIX IV NR (04:15)
[2022-03-07 05:18] LABS: CLARITY URINE CLEAR (CLEAR); COLOR URINE YELLOW (YELLOW); KETONES URINE NEGATIVE (NEGATIVE); LEUKOCYTE ESTERASE URINE NEGATIVE (NEGATIVE); NITRITE URINE NEGATIVE (NEGATIVE); OCCULT BLOOD URINE NEGATIVE (NEGATIVE); PROTEIN URINE 1+ (NEGATIVE); SPECIFIC GRAVITY URINE 1.032 (1.005-1.030); UROBILINOGEN URINE 0.2 E.U./dL (0.2-1.0)
[2022-03-07] MEDS ORDERED: OXYCODONE HCL/ACETAMINOPHEN 5/325MG TABLET PO ONE (05:30)
[2022-03-07 05:41] LABS: *AMPHETAMINES SCREEN URINE NEGATIVE (NEGATIVE); *BARBITURATES SCREEN URINE NEGATIVE (NEGATIVE); *BENZODIAZEPINES SCREEN URINE NEGATIVE (NEGATIVE); *COCAINE SCREEN URINE NEGATIVE (NEGATIVE); CANNABINOID URINE SCREEN NEGATIVE (NEGATIVE); OPIATES URINE SCREEN PRESUMTIVE POSITIVE (NEGATIVE); PHENCYCLIDINE URINE SCREEN NEGATIVE (NEGATIVE)
[2022-03-07 05:45] LABS: METHADONE URINE SCREEN PRESUMTIVE POSITIVE (NEGATIVE)
[2022-03-07] MEDS ORDERED: OXYCODONE HCL/ACETAMINOPHEN 5/325MG TABLET PO NR (06:00)
[2022-03-07 06:30] VITALS: BP 146/92
[2022-03-07] MEDS ORDERED: INSU100V37 SQ (07:38)
[2022-03-07] MEDS ORDERED: INSU100I28 SQ (07:39)
== END 2022-03-07 10:46 | disposition home or self-care (01) ==
LOC: ER 23:53
DX: E11.65 Type 2 diabetes mellitus with hyperglycemia (principal); K21.9 Gastro-esophageal reflux disease without esophagitis; I10 Essential (primary) hypertension; Z87.01 Personal history of pneumonia (recurrent); Z98.890 Other specified postprocedural states; F17.200 Nicotine dependence, unspecified, uncomplicated; Z79.899 Other long term (current) drug therapy
CPT/HCPCS: 36415; 71045; 80053; 80305; 80320; 81003; 82010; 83605; 83690; 84484; 85025; 96365; 96367; 99284; J2543; J3370; J7030; Z7610; G0480

== ENCOUNTER 2022-04-13 23:21 | Emergency (ER) | payer MEDICAID ==
[~2022-04-13] VITALS: Ht 154.9 cm; Wt 70.6 kg
[~2022-04-13 23:21] MED LIST changes: +INSU100I28 SQ; +INSU100V37 SQ
[2022-04-14] MEDS ORDERED: ONDANSETRON HCL 4MG/2ML INJ IV ONE (05:30)
[2022-04-14] MEDS ORDERED: MORPHINE SULFATE 4 MG/ML CPJ (NOT FOR IM USE) IV ONE (05:30)
[2022-04-14] MEDS ORDERED: KETOROLAC 30MG/ML VIAL IV ONE (06:45)
[2022-04-14 07:00] VITALS: BP 128/78
[2022-04-14] MEDS ORDERED: OXYC-100 PO (07:05)
[2022-04-14] MEDS ORDERED: IBUP-2028 PO (07:05)
== END 2022-04-14 07:27 | disposition home or self-care (01) ==
LOC: ER 23:21
DX: M54.9 Dorsalgia, unspecified (principal); R00.1 Bradycardia, unspecified; I10 Essential (primary) hypertension; E11.9 Type 2 diabetes mellitus without complications; K21.9 Gastro-esophageal reflux disease without esophagitis; E78.00 Pure hypercholesterolemia, unspecified; Z79.4 Long term (current) use of insulin; Z90.49 Acquired absence of other specified parts of digestive tract
CPT/HCPCS: 72100; 82962; 93005; 96374; 96375; 99284; J1885; J2270; J2405

== ENCOUNTER 2022-04-23 23:53 | Emergency (ER) | payer MEDICAID ==
[~2022-04-23] VITALS: Ht 154.9 cm; Wt 69.0 kg
[~2022-04-23 23:53] MED LIST changes: +IBUP-2028 PO; +OXYC-100 PO
[2022-04-24] MEDS ORDERED: HYDROCODONE/ACETAMINOPHEN 5/325MG TABLET PO ONE (01:45)
[2022-04-24 03:22] VITALS: BP 114/84
[2022-04-24] MEDS ORDERED: NAPR-1176 MT (05:24)
[2022-04-24] MEDS ORDERED: HYDR-4001 MT (05:24)
== END 2022-04-24 05:36 | disposition home or self-care (01) ==
LOC: ER 23:53
DX: M54.9 Dorsalgia, unspecified (principal); M25.552 Pain in left hip; M25.551 Pain in right hip; E11.9 Type 2 diabetes mellitus without complications; K21.9 Gastro-esophageal reflux disease without esophagitis; E78.00 Pure hypercholesterolemia, unspecified; I10 Essential (primary) hypertension; Z90.49 Acquired absence of other specified parts of digestive tract; Z98.890 Other specified postprocedural states
CPT/HCPCS: 72131; 72192; 99284

== ENCOUNTER 2022-05-04 02:05 | Emergency (ER) | payer MEDICAID ==
[~2022-05-04] VITALS: Ht 154.9 cm; Wt 72.1 kg
[~2022-05-04 02:05] MED LIST changes: +HYDR-4001 MT; +NAPR-1176 MT
[2022-05-04 02:15] VITALS: BP 151/83
== END 2022-05-04 05:50 | disposition home or self-care (01) ==
LOC: ER 02:05
DX: G89.29 Other chronic pain (principal); M54.9 Dorsalgia, unspecified; E11.9 Type 2 diabetes mellitus without complications; I10 Essential (primary) hypertension; E78.00 Pure hypercholesterolemia, unspecified; Z98.890 Other specified postprocedural states; Z79.899 Other long term (current) drug therapy
CPT/HCPCS: 82962; 99282

== ENCOUNTER 2022-05-22 04:36 | Emergency (ER) | payer MEDICAID ==
[~2022-05-22] VITALS: Ht 165.1 cm; Wt 73.0 kg
[2022-05-22] MEDS ORDERED: HYDROCODONE/ACETAMINOPHEN 5/325MG TABLET PO ONE (06:45)
[2022-05-22] MEDS ORDERED: KETOROLAC 30MG/ML VIAL IM ONE (06:45)
[2022-05-22] MEDS ORDERED: IBUP-2028 MT (08:34)
[2022-05-22] MEDS ORDERED: HYDR-4001 MT (08:34)
[2022-05-22] MEDS ORDERED: LIDO1ADH23 TP (08:34)
[2022-05-22 08:49] VITALS: BP 142/74
== END 2022-05-22 08:51 | disposition home or self-care (01) ==
LOC: ER 04:36
DX: G89.29 Other chronic pain (principal); M54.50 Low back pain, unspecified; E11.9 Type 2 diabetes mellitus without complications; K21.9 Gastro-esophageal reflux disease without esophagitis; I10 Essential (primary) hypertension; E78.00 Pure hypercholesterolemia, unspecified; Z98.890 Other specified postprocedural states
CPT/HCPCS: 96372; 99283; J1885; Z7610

== ENCOUNTER 2022-06-11 00:25 | Emergency (ER) | payer MEDICAID ==
[~2022-06-11] VITALS: Ht 154.9 cm; Wt 68.0 kg
[~2022-06-11 00:25] MED LIST changes: +IBUP-2028 MT; +LIDO1ADH23 TP
[2022-06-11] MEDS ORDERED: KETOROLAC 60MG/2ML VIAL IM ONE (01:45)
[2022-06-11 02:23] VITALS: BP 137/76
== END 2022-06-11 02:25 | disposition home or self-care (01) ==
LOC: ER 00:25
DX: J04.0 Acute laryngitis (principal); Z68.28 Body mass index [BMI] 28.0-28.9, adult
CPT/HCPCS: 96372; 99283; J1885

== ENCOUNTER 2022-06-26 23:12 | Emergency (ER) | payer MEDICAID ==
[~2022-06-26] VITALS: Ht 154.9 cm; Wt 71.0 kg
[2022-06-26 23:21] VITALS: BP 137/91
== END 2022-06-27 03:40 | disposition left against medical advice (07) ==
LOC: ER 23:12
DX: J04.0 Acute laryngitis (principal)
CPT/HCPCS: 82962; 99281; 99282

== ENCOUNTER 2023-01-29 09:15 | Inpatient (IN) | payer MEDICAID ==
[~2023-01-29] VITALS: Ht 167.6 cm; Wt 70.3 kg
[~2023-01-29 09:15] MED LIST changes: -GLIP5TAB12 PO; +GLIP5TAB22 PO; -INSU100V37 SQ; +INSU100V43 SQ; +POTA-354 MT; -POTA-79 MT
[2023-01-29 09:49] VITALS: O2SAT 100
[2023-01-29 10:42] LABS: BASOPHILS % 0.2 % (0.0-2.0); EOSINOPHILS % 0.1 % (0.0-5.0); HEMATOCRIT. 37.9 % (36.0-48.0); HEMOGLOBIN. 12.1 g/dL (12.0-16.0); LYMPHOCYTES % 10.6 % (20.0-50.0); MEAN CORPUSCULAR HEMOGLOBIN 28.3 pg (28.0-32.0); MEAN CORPUSCULAR VOLUME 88.2 fL (81.0-99.0); MEAN PLATELET VOLUME 9.1 fl (7.4-10.4); MONOCYTES % 10.9 % (2.0-8.0); NEUTROPHILS % 78.2 % (40.0-76.0); PLATELET 376 x1000/uL (130-400); RED CELL DISTRIBUTION WIDTH 15.1 % (11.6-14.6); WHITE BLOOD COUNT 25.4 x1000/uL (4.5-11.0)
[2023-01-29 10:55] LABS: ALANINE AMINOTRANSFERASE 16 IU/L (10-49); ALBUMIN 3.9 g/dL (3.2-4.8); ASPARTATE AMINOTRANSFERASE 12 IU/L (<34); BILIRUBIN TOTAL 0.8 mg/dL (0.1-1.0); CALCIUM 10.3 mg/dL (8.7-10.4); CARBON DIOXIDE 17 mEq/L (21-32); CHLORIDE 100 mEq/L (98-107); CREATININE 1.8 mg/dL (0.6-1.0); PROTEIN TOTAL 7.2 g/dL (6.0-8.3); SODIUM 129 mEq/L (136-145); UREA NITROGEN BLOOD 18 mg/dL (9-23)
[2023-01-29 11:16] LABS: GLUCOSE 457 mg/dL (70-105)
[2023-01-29] MEDS ORDERED: INSULIN REGULAR (HUMULIN R) 300UNITS/3ML VIAL IV NR (11:45)
[2023-01-29] MEDS ORDERED: SODIUM CHLORIDE 0.9% 2,000 ML IV ONE (11:45)
[2023-01-29] MEDS ORDERED: SODIUM CHLORIDE 0.9% 500 ML IV ONE (12:30)
[2023-01-29] MEDS ORDERED: CEFTRIAXONE 1GM PREMIX 50 ML IV ONE (12:30)
[2023-01-29 12:38] LABS: CLARITY URINE CLOUDY (CLEAR); COLOR URINE YELLOW (YELLOW); SPECIFIC GRAVITY URINE >1.030 (1.005-1.030)
[2023-01-29 12:39] LABS: GLUCOSE URINE 1+ (NEGATIVE); KETONES URINE TRACE (NEGATIVE); LEUKOCYTE ESTERASE URINE TRACE (NEGATIVE); NITRITE URINE NEGATIVE (NEGATIVE); OCCULT BLOOD URINE TRACE (NEGATIVE); PROTEIN URINE 2+ (NEGATIVE)
[2023-01-29 12:56] LABS: BACTERIA URINE 1+; RBC URINE 0-2 /hpf (0-2); SQUAMOUS EPITHELIAL CELL URINE 1+ /lpf (RARE/1+); YEAST URINE 2+
[2023-01-29] MEDS ORDERED: FLUCONAZOLE 100MG TABLET PO NR (13:00)
[2023-01-29] MEDS ORDERED: BUPR-46 PO (14:45)
[2023-01-29] MEDS ORDERED: AMLO10TA80 PO (14:45)
[2023-01-29] MEDS ORDERED: ALBU2.5V13 NEB (14:45)
[2023-01-29] MEDS ORDERED: LIDO700A30 TP (14:45)
[2023-01-29] MEDS ORDERED: HYDR50TA54 PO (14:45)
[2023-01-29] MEDS ORDERED: DICL75TA5 PO (14:45)
[2023-01-29] MEDS ORDERED: MEGE400O5 PO (14:45)
[2023-01-29] MEDS ORDERED: CYCL10TA21 PO (14:46)
[2023-01-29] MEDS ORDERED: MORPHINE SULFATE 4 MG/ML CPJ (NOT FOR IM USE) IV ONE (15:00)
[2023-01-29 16:46] LABS: CALCIUM 9.8 mg/dL (8.7-10.4); CREATININE 1.5 mg/dL (0.6-1.0); POTASSIUM 3.4 mEq/L (3.5-5.1)
[2023-01-29 22:45] VITALS: BP 111/65; PULSE 89; RESP 18; TEMP 97.7
[2023-01-29 23:00] VITALS: BP 111/65; PULSE 89; RESP 18; TEMP 97.7
[2023-01-30 04:00] VITALS: BP 105/63; PULSE 89; RESP 18; TEMP 97.8
[2023-01-30] MEDS ORDERED: CEFTRIAXONE 1GM PREMIX 50 ML IV SCH (04:00)
[2023-01-30] MEDS: ONDANSETRON HCL 4MG/2ML INJ IV PRN ×2 (04:19→04:21)
[2023-01-30] MEDS: SODIUM CHLORIDE 0.9% 1,000 ML IV SCH ×3 (04:20→20:00)
[2023-01-30] MEDS: MORPHINE SULFATE 2 MG/ML CPJ (NOT FOR IM USE) IV PRN ×5 (04:20→21:58)
[2023-01-30 08:00] VITALS: BP 102/59; PULSE 88; RESP 19; TEMP 98.2
[2023-01-30 11:03] LABS: BASOPHILS % 0.3 % (0.0-2.0); EOSINOPHILS % 0.2 % (0.0-5.0); LYMPHOCYTES % 13.7 % (20.0-50.0); MEAN CORPUSCULAR HEMOGLOBIN 28.3 pg (28.0-32.0); MEAN CORPUSCULAR HGB CONC 32.2 g/dL (31.0-37.0); MEAN PLATELET VOLUME 9.4 fl (7.4-10.4); MONOCYTES % 14.4 % (2.0-8.0); NEUTROPHILS % 71.4 % (40.0-76.0); PLATELET 305 x1000/uL (130-400); RED BLOOD CELL COUNT 3.87 mill/uL (4.2-5.4); RED CELL DISTRIBUTION WIDTH 14.8 % (11.6-14.6); WHITE BLOOD COUNT 17.2 x1000/uL (4.5-11.0)
[2023-01-30 11:53] LABS: ALANINE AMINOTRANSFERASE 15 IU/L (10-49); ALBUMIN 3.5 g/dL (3.2-4.8); ASPARTATE AMINOTRANSFERASE 19 IU/L (<34); BILIRUBIN TOTAL 0.7 mg/dL (0.1-1.0); CALCIUM 9.9 mg/dL (8.7-10.4); CARBON DIOXIDE 15 mEq/L (21-32); CHLORIDE 107 mEq/L (98-107); CREATININE 1.1 mg/dL (0.6-1.0); GLUCOSE 210 mg/dL (70-105); POTASSIUM 4.5 mEq/L (3.5-5.1); PROTEIN TOTAL 6.7 g/dL (6.0-8.3); SODIUM 134 mEq/L (136-145); UREA NITROGEN BLOOD 10 mg/dL (9-23)
[2023-01-30 12:00] VITALS: BP 119/62; PULSE 94; RESP 18; TEMP 97.7
[2023-01-30] MEDS: AMLODIPINE 10MG TABLET PO SCH (14:12)
[2023-01-30] MEDS ORDERED: CEFTRIAXONE 1,000 MG in DEXTROSE 5% WATER 50 ML IV SCH (15:00)
[2023-01-30 16:00] VITALS: BP 102/60; PULSE 85; RESP 19; TEMP 97.3
[2023-01-30 20:00] VITALS: BP 105/65; PULSE 88; RESP 18; TEMP 97.5
[2023-01-30] MEDS ORDERED: DEXTROSE 50% WATER 50ML SYRINGE IV PRN (20:30)
[2023-01-30] MEDS ORDERED: BUPROPION HCL 75MG TABLET PO SCH (21:00)
[2023-01-30] MEDS: BLOOD SUGAR DIAGNOSTIC STRIP TEST SCH (21:00)
[2023-01-30] MEDS ORDERED: INSULIN GLARGINE 100 UNITS/ML SUBCUT SCH (22:00)
[2023-01-30] MEDS: INSULIN LISPRO 100 UNITS/ML SUBCUT SCH (22:11)
[2023-01-31] VITALS: BP 120/66; PULSE 67; RESP 19; TEMP 97.4
[2023-01-31] MEDS: SODIUM CHLORIDE 0.9% 1,000 ML IV SCH (04:00)
[2023-01-31] MEDS: ONDANSETRON HCL 4MG/2ML INJ IV PRN (05:55)
[2023-01-31] MEDS: MORPHINE SULFATE 2 MG/ML CPJ (NOT FOR IM USE) IV PRN ×2 (05:55→09:40)
[2023-01-31] MEDS: BLOOD SUGAR DIAGNOSTIC STRIP TEST SCH ×2 (06:01→13:15)
[2023-01-31 06:32] LABS: BASOPHILS % 0.3 % (0.0-2.0); EOSINOPHILS % 0.2 % (0.0-5.0); HEMATOCRIT. 30.6 % (36.0-48.0); HEMOGLOBIN. 10.4 g/dL (12.0-16.0); LYMPHOCYTES % 16.1 % (20.0-50.0); MEAN CORPUSCULAR HEMOGLOBIN 28.4 pg (28.0-32.0); MEAN CORPUSCULAR HGB CONC 33.9 g/dL (31.0-37.0); MEAN CORPUSCULAR VOLUME 83.9 fL (81.0-99.0); MEAN PLATELET VOLUME 9.2 fl (7.4-10.4); MONOCYTES % 14.9 % (2.0-8.0); NEUTROPHILS % 68.5 % (40.0-76.0); PLATELET 336 x1000/uL (130-400); RED BLOOD CELL COUNT 3.64 mill/uL (4.2-5.4); RED CELL DISTRIBUTION WIDTH 15.1 % (11.6-14.6); WHITE BLOOD COUNT 15.3 x1000/uL (4.5-11.0)
[2023-01-31] MEDS ORDERED: PANTOPRAZOLE 40MG DR TABLET PO SCH (07:40)
[2023-01-31 08:00] VITALS: BP 101/54; PULSE 56; RESP 18; TEMP 97.6
[2023-01-31] MEDS: AMLODIPINE 10MG TABLET PO SCH (09:00)
[2023-01-31 09:07] LABS: CALCIUM 9.9 mg/dL (8.7-10.4); CARBON DIOXIDE 19 mEq/L (21-32); CHLORIDE 108 mEq/L (98-107); CREATININE 0.9 mg/dL (0.6-1.0); GLUCOSE 142 mg/dL (70-105); POTASSIUM 3.5 mEq/L (3.5-5.1); SODIUM 137 mEq/L (136-145); UREA NITROGEN BLOOD 8 mg/dL (9-23)
[2023-01-31 09:40] VITALS: RESP 18
[2023-01-31] MEDS: INSULIN LISPRO 100 UNITS/ML SUBCUT SCH ×2 (09:48→13:43)
[2023-01-31] MEDS ORDERED: POTASSIUM CHLORIDE 20MEQ TABLET SR PO NR (10:15)
[2023-01-31] MEDS ORDERED: INSU100I73 SQ (10:36)
[2023-01-31] MEDS ORDERED: CIPR-263 MT (10:36)
[2023-01-31 12:31] VITALS: BP 92/52; PULSE 85; TEMP 97.4
[2023-01-31] MEDS ORDERED: ENOXAPARIN 40MG/0.4ML SYR SUBCUT SCH (13:46)
== END 2023-01-31 13:50 | disposition home or self-care (01) | DRG 720 ==
LOC: ER 09:15 → 7WST 16:54
PROVIDERS: ADMIT Internal Medicine; ATTEND Internal Medicine
DX: A41.9 Sepsis, unspecified organism (principal); N17.0 Acute kidney failure with tubular necrosis; E11.10 Type 2 diabetes mellitus with ketoacidosis without coma; E87.1 Hypo-osmolality and hyponatremia; N39.0 Urinary tract infection, site not specified; E78.00 Pure hypercholesterolemia, unspecified; Z20.822 Contact with and (suspected) exposure to COVID-19; K21.9 Gastro-esophageal reflux disease without esophagitis; D64.9 Anemia, unspecified; I10 Essential (primary) hypertension; Z98.891 History of uterine scar from previous surgery
CPT/HCPCS: 36415; 71045; 80048; 80053; 81003; 82010; 82962; 83036; 83605; 84145; 85025; 87426; 93005; 99291; C9803; J0696; J1815; J2270; J2405; J7030; J7040; J7060

== ENCOUNTER 2023-02-23 17:14 | Emergency (ER) | payer OTHER ==
[~2023-02-23] VITALS: Ht 160 cm; Wt 81.0 kg
[~2023-02-23 17:14] MED LIST changes: -ACET-2708 MT; +ALBU2.5V13 NEB; +AMLO10TA80 PO; -AMLO5TAB88 PO; +BUPR-46 PO; -CEPH500C2 MT; +CIPR-263 MT; +CYCL10TA21 PO; -CYCL5TAB MT; -FURO20TA4 PO; -GLIP5TAB22 PO; -HYDR-4001 MT; +HYDR50TA54 PO; -IBUP-2028 MT; -IBUP-2028 PO; -INSU100I28 SQ; +INSU100I73 SQ; -INSU100V43 SQ; -LEVO-65 MT; -LIDO1ADH23 TP; +LIDO700A30 TP; +MEGE400O5 PO; -METF-414 MT; -NAPR-1176 MT; -OXYC-100 PO; -PANT40TA51 MT; -POTA-354 MT
[2023-02-23 17:19] VITALS: BP 132/90; PULSE 123; RESP 18; TEMP 97.8; O2SAT 97
[2023-02-23] MEDS ORDERED: ACETAMINOPHEN 325MG TABLET PO ONE (17:30)
[2023-02-23 17:58] LABS: BASOPHILS % 0.8 % (0.0-2.0); EOSINOPHILS % 0.1 % (0.0-5.0); HEMATOCRIT. 35.6 % (36.0-48.0); HEMOGLOBIN. 11.4 g/dL (12.0-16.0); LYMPHOCYTES % 30.8 % (20.0-50.0); MEAN CORPUSCULAR HEMOGLOBIN 27.4 pg (28.0-32.0); MEAN CORPUSCULAR HGB CONC 32.1 g/dL (31.0-37.0); MEAN CORPUSCULAR VOLUME 85.3 fL (81.0-99.0); MEAN PLATELET VOLUME 8.6 fl (7.4-10.4); MONOCYTES % 6.1 % (2.0-8.0); NEUTROPHILS % 62.2 % (40.0-76.0); PLATELET 242 x1000/uL (130-400); RED BLOOD CELL COUNT 4.17 mill/uL (4.2-5.4); RED CELL DISTRIBUTION WIDTH 17.2 % (11.6-14.6); WHITE BLOOD COUNT 11.4 x1000/uL (4.5-11.0)
[2023-02-23 18:10] LABS: ALANINE AMINOTRANSFERASE 13 IU/L (10-49); ASPARTATE AMINOTRANSFERASE 16 IU/L (<34); BILIRUBIN TOTAL 0.3 mg/dL (0.1-1.0); CALCIUM 10.7 mg/dL (8.7-10.4); CARBON DIOXIDE 23 mEq/L (21-32); CHLORIDE 101 mEq/L (98-107); CREATININE 1.5 mg/dL (0.6-1.0); PROTEIN TOTAL 7.8 g/dL (6.0-8.3); SODIUM 132 mEq/L (136-145); UREA NITROGEN BLOOD 23 mg/dL (9-23)
[2023-02-23 18:11] LABS: HCG SCREEN NEGATIVE
[2023-02-23 18:31] LABS: GLUCOSE 450 mg/dL (70-105)
== END 2023-02-23 20:00 | disposition left against medical advice (07) ==
LOC: ER 17:14
DX: E11.65 Type 2 diabetes mellitus with hyperglycemia (principal); R10.9 Unspecified abdominal pain; M79.601 Pain in right arm; M79.604 Pain in right leg; R07.81 Pleurodynia
CPT/HCPCS: 36415; 71045; 73030; 73060; 73080; 73502; 73552; 73562; 80053; 84703; 85025; 99284

== ENCOUNTER 2023-04-29 16:40 | Inpatient (IN) | payer OTHER ==
[~2023-04-29] VITALS: Ht 154.9 cm; Wt 63.5 kg
[2023-04-29 17:02] VITALS: O2SAT 96
[2023-04-29 17:52] LABS: CLARITY URINE CLEAR (CLEAR); COLOR URINE YELLOW (YELLOW); GLUCOSE URINE 3+ (NEGATIVE); KETONES URINE NEGATIVE (NEGATIVE); LEUKOCYTE ESTERASE URINE NEGATIVE (NEGATIVE); NITRITE URINE NEGATIVE (NEGATIVE); OCCULT BLOOD URINE NEGATIVE (NEGATIVE); PH URINE 6.5 (4.5-8.0); PROTEIN URINE TRACE (NEGATIVE); SPECIFIC GRAVITY URINE 1.031 (1.005-1.030)
[2023-04-29 18:34] LABS: BASOPHILS % 0.3 % (0.0-2.0); EOSINOPHILS % 0.1 % (0.0-5.0); HEMATOCRIT. 36.9 % (36.0-48.0); HEMOGLOBIN. 12.2 g/dL (12.0-16.0); LYMPHOCYTES % 16.7 % (20.0-50.0); MEAN CORPUSCULAR HEMOGLOBIN 28.8 pg (28.0-32.0); MEAN CORPUSCULAR VOLUME 87.1 fL (81.0-99.0); MEAN PLATELET VOLUME 8.6 fl (7.4-10.4); MONOCYTES % 9.6 % (2.0-8.0); NEUTROPHILS % 73.3 % (40.0-76.0); PLATELET 256 x1000/uL (130-400); RED BLOOD CELL COUNT 4.23 mill/uL (4.2-5.4); RED CELL DISTRIBUTION WIDTH 14.1 % (11.6-14.6); WHITE BLOOD COUNT 16.8 x1000/uL (4.5-11.0)
[2023-04-29 18:42] LABS: ALANINE AMINOTRANSFERASE 20 IU/L (10-49); ALBUMIN 4.1 g/dL (3.2-4.8); ASPARTATE AMINOTRANSFERASE 21 IU/L (<34); BILIRUBIN TOTAL 0.5 mg/dL (0.1-1.0); CALCIUM 10.7 mg/dL (8.7-10.4); CARBON DIOXIDE 22 mEq/L (21-32); CHLORIDE 102 mEq/L (98-107); CREATININE 1.5 mg/dL (0.6-1.0); GLUCOSE 345 mg/dL (70-105); POTASSIUM 4.2 mEq/L (3.5-5.1); PROTEIN TOTAL 6.9 g/dL (6.0-8.3); SODIUM 132 mEq/L (136-145); UREA NITROGEN BLOOD 14 mg/dL (9-23)
[2023-04-29 19:10] LABS: BACTERIA URINE TRACE; RBC URINE 0-2 /hpf (0-2); SQUAMOUS EPITHELIAL CELL URINE FEW /lpf (RARE/1+); WBC URINE 0-2 /hpf (0-2)
[2023-04-29 21:25] LABS: TROPONIN I HIGH SENSITIVITY 5 ng/L (3.0-34)
[2023-04-29] MEDS: SODIUM CHLORIDE 0.9% 1000ML BAG (SEPSIS BOLUS) IV ONE (22:45)
[2023-04-29 23:17] LABS: LACTATE DEHYDROGENASE 330 IU/L (120-246)
[2023-04-30] MEDS ORDERED: ACETAMINOPHEN 325MG TABLET PO PRN ×2 (01:45)
[2023-04-30] MEDS ORDERED: IPRATROPIUM/ALBUTEROL 0.5-3(2.5)MG/3ML NEB HHN PRN (01:45)
[2023-04-30] MEDS ORDERED: MAGNESIUM/ALUMINUM HYDROXIDE/SIMETHICONE 30ML UDC PO PRN (01:45)
[2023-04-30] MEDS ORDERED: DEXTROSE 50% WATER 50ML SYRINGE IV PRN (01:45)
[2023-04-30] MEDS ORDERED: DIPHENHYDRAMINE 50MG/ML VIAL IV PRN (01:45)
[2023-04-30] MEDS ORDERED: CLONIDINE 0.1MG TABLET PO PRN (01:45)
[2023-04-30] MEDS ORDERED: GUAIFENESIN 200MG/10ML SUGAR FREE UDC PO PRN (01:45)
[2023-04-30 03:31] VITALS: BP 135/72; PULSE 90; RESP 18; TEMP 97.9
[2023-04-30] MEDS: ONDANSETRON HCL 4MG/2ML INJ IV PRN (03:57)
[2023-04-30] MEDS: SODIUM CHLORIDE 0.9% INJ 3ML FLUSH IVF SCH (05:31)
[2023-04-30] MEDS ORDERED: KETOROLAC 30MG/ML VIAL IV PRN (06:30)
[2023-04-30] MEDS ORDERED: MAGNESIUM HYDROXIDE 400MG/5ML 30ML UDC PO PRN (06:30)
[2023-04-30] MEDS: BLOOD SUGAR DIAGNOSTIC STRIP TEST SCH (06:32)
[2023-04-30] MEDS ORDERED: NALOXONE HCL 0.4MG/ML VIAL IV PRN (06:45)
[2023-04-30] MEDS: INSULIN LISPRO 100 UNITS/ML SUBCUT SCH (06:48)
[2023-04-30] MEDS: HYDROCODONE/ACETAMINOPHEN 5/325MG TABLET PO PRN (06:50)
[2023-04-30 08:00] VITALS: BP 117/70; PULSE 78; RESP 20; TEMP 97.9
[2023-04-30] MEDS: LEVOFLOXACIN 500MG PREMIX 100 ML IV NR (08:59)
[2023-04-30] MEDS: ENOXAPARIN 40MG/0.4ML SYR SUBCUT SCH (09:00)
[2023-04-30] MEDS: DOCUSATE SODIUM 250MG CAPSULE PO SCH (10:17)
[2023-04-30] MEDS: GUAIFENESIN 600MG ER TABLET PO SCH (10:18)
[2023-04-30 11:03] VITALS: PULSE 85; RESP 18
[2023-04-30] MEDS: IPRATROPIUM/ALBUTEROL 0.5-3(2.5)MG/3ML NEB HHN SCH (11:03)
[2023-04-30 12:00] VITALS: BP 125/68; PULSE 20; RESP 20; TEMP 98
[2023-04-30 16:00] VITALS: BP 117/64; PULSE 81; RESP 20; TEMP 97.7
[2023-04-30 20:00] VITALS: BP 113/56; PULSE 88; RESP 17; TEMP 97.3
[2023-04-30] MEDS: INSULIN GLARGINE 100 UNITS/ML SUBCUT SCH (22:16)
[2023-04-30] MEDS: ZOLPIDEM TARTRATE 5MG TABLET PO PRN (22:16)
[2023-05-01 08:00] VITALS: BP 127/76; PULSE 89; RESP 20; TEMP 98
[2023-05-01] MEDS ORDERED: LEVOFLOXACIN 250MG PREMIX 50 ML IV SCH (09:00)
[2023-05-01 11:03] VITALS: PULSE 86; RESP 20
[2023-05-01] MEDS ORDERED: LEVOFLOXACIN 750MG PREMIX 150 ML IV SCH (18:00)
== END 2023-05-01 12:33 | disposition home or self-care (01) | DRG 468 ==
LOC: ER 16:40 → 8WST 23:58 → EDBEDREQ 04-30 00:29 → EDBEDREQTM 04-30 00:29
PROVIDERS: ADMIT Internal Medicine; ATTEND Internal Medicine
DX: N28.89 Other specified disorders of kidney and ureter (principal); R65.10 Systemic inflammatory response syndrome (SIRS) of non-infectious origin without acute organ dysfunction; M54.9 Dorsalgia, unspecified; I10 Essential (primary) hypertension; E11.9 Type 2 diabetes mellitus without complications; R10.9 Unspecified abdominal pain; E78.00 Pure hypercholesterolemia, unspecified; K21.9 Gastro-esophageal reflux disease without esophagitis; Z98.891 History of uterine scar from previous surgery; Z72.0 Tobacco use; Z90.49 Acquired absence of other specified parts of digestive tract
CPT/HCPCS: 36415; 71045; 74176; 80053; 81003; 82962; 83036; 83605; 83615; 83880; 84145; 84484; 85025; 94640; 99291; J1650; J1815; J1956; J2405; J7030